=== PATIENT | male | born 1955 | race Caucasian/White ===

== ENCOUNTER → 2020-07-26 | Outpatient (CLI) | payer MEDICARE ==
[~2020-07-26] MED LIST: CATHETER FLUSH 10 ML SYR IV PRN; HOLD METFORMIN - RECEIVED CONTRAST 20 ML VIAL IV SCH; IOHEXOL 350 MG/ML 100 ML (OMNIPAQUE 350) VIAL IV ONE; NS 100 ML (IVPB) BAG IV ONE
[2020-07-26 15:03] LABS: ALANINE AMINOTRANSFERASE 20 U/L (0-55); ALKALINE PHOSPHATASE 73 U/L (40-136); BILIRUBIN,TOTAL 0.4 MG/DL (0.1-1.0); BUN/CREATININE RATIO 16; CALCIUM 9.5 MG/DL (8.5-10.1); CARBON DIOXIDE 28 MMOL/L (21-32); CHLORIDE 101 MMOL/L (98-107); CREATININE SERUM 0.88 MG/DL (0.60-1.30); GFR ESTIMATED > 60; GLUCOSE 105 MG/DL (70-105); POTASSIUM 4.8 MMOL/L (3.6-5.0); SODIUM 140 MMOL/L (135-145)
[2020-07-26 15:04] LABS: ALBUMIN 4.5 GM/DL (3.2-4.5); TOTAL PROTEIN 7.4 GM/DL (6.4-8.2)
--- NOTE | 2020-07-26 17:25 | Diagnostic Imaging Report ---
CLINICAL INDICATION: Patient with swelling of right side of face x1 week. EXAM: Axial CT scan of maxillofacial structures performed without and with 75 mL of Omnipaque 350 IV contrast. Coronal and sagittal reformatted images are created. Auto Exposure Controls were utilized during the CT exam to meet ALARA standards for radiation dose reduction. COMPARISON: None. FINDINGS: There is complete consolidation of the right maxillary sinus and obstruction of the right infundibular region. There is no enhancing mass seen. There are small amorphous areas of increased density involving the medial aspect of the right maxillary sinus. There is mild bony thickening/sclerosis of the right maxillary sinus wall likely related to chronic sinusitis changes. There is mild mucosal thickening involving the left maxillary sinus, ethmoid sinus, sphenoid sinus. There is no significant extracranial or maxillofacial soft tissue abnormality. There is no abscess or fat stranding seen. There is a small amount of soft tissue fat stranding and thickening involving the right upper lip/soft tissue adjacent to the maxilla. There is no evidence of abscess. There is poor dentition seen with dental erosions involving the maxillary right canine tooth. There is also some cortical disruption involving the alveolar region near the area. There are other areas of dental caries seen involving the maxillary and mandibular regions. There is rightward nasal septal deviation seen. The orbits and globes are intact. Visualized mastoid air cells are clear and unremarkable. Limited visualization of the intracranial structures are unremarkable. IMPRESSION: 1: There are multiple dental caries seen. There are dental erosions adjacent to the root of the maxillary right canine tooth with defect of the alveolar wall which is in the area of soft tissue inflammation involving the right upper lip/soft tissue adjacent to the right maxilla. There is no evidence of abscess. These findings are suspected to be odontogenic. 2: There is complete consolidation of the right maxillary sinus likely related to sinus disease. There is no enhancing mass seen. 3: There is mild paranasal sinusitis involving the ethmoid sinus, left maxillary sinus and sphenoid sinus. 4: There is chronic rightward nasal septal deviation. 5: Poor dentition is seen with multiple dental caries. Dictated by: Dictated on workstation # [id number]
== END ==
LOC: RAD FS 14:20
PROVIDERS: ATTEND Family Medicine
DX: R22.0 Localized swelling, mass and lump, head (principal); J34.89 Other specified disorders of nose and nasal sinuses; J34.2 Deviated nasal septum; K02.9 Dental caries, unspecified
CPT/HCPCS: 36415; 70488; 80053

== ENCOUNTER → 2021-03-01 | Outpatient (CLI) | payer MEDICARE ==
--- NOTE | 2021-03-01 15:02 | Diagnostic Imaging Report ---
EXAMINATION: Right shoulder MRI from 03/01/2021. TECHNIQUE: Multiplanar, multisequence pos-mtquuzqi-lfmeroor MRI of the right upper extremity was accomplished. INDICATION: Previous rotator cuff repair. Recent reinjury. Pain. FINDINGS: There are postoperative changes with susceptibility artifact about the humeral head. There are full-thickness tears of the supraspinatus and infraspinatus tendons with retraction measuring at least 4.3 cm. Findings cause secondary superior subluxation of the humeral head in relation to the glenoid. Within the caudal-most fibers of the subscapularis tendon, tendinosis is noted. More cranially, there is a partial-thickness intrasubstance tear which extends through the articular surface of the tendon in the cranial-most aspect of the tendon. No full-thickness extension is seen with no retraction of the tendon. The distal long head of the biceps tendon is intact and lies within the bicipital groove. More proximally, the biceps tendon is not seen, and there has been a likely biceps tenodesis; correlate with surgical procedure. There is diffuse heterogeneity throughout the superior labrum, and a tiny T2 hyperintensity is seen along the posterosuperior labrum suspicious for a paralabral cyst, best seen on the coronal T2 fat-saturated sequence image #8. Post-contrast MRI could confirm a labral tear if clinically indicated. There is narrowing, spurring, and edema throughout the acromioclavicular joint space with cystic changes cranial to the acromioclavicular joint consistent with a ganglion. There is a small amount of fluid in the subdeltoid-subacromial bursa with a small glenohumeral joint effusion. There is narrowing and spurring throughout the glenohumeral joint space. There is atrophy and fatty infiltration throughout the supraspinatus muscle and subscapularis muscle as well. Minimal fatty infiltration within the infraspinatus muscle is also noted. The visualized axilla is unremarkable. IMPRESSION: 1. Postoperative changes with full-thickness tears of the supraspinatus and infraspinatus tendons. 2. Partial tears throughout the subscapularis tendon. 3. Likely prior biceps tenodesis. 4. Suspected tear of the labrum; see above discussion and recommendations. Other findings as discussed above. Dictated by: Dictated on workstation # [id number]
== END ==
LOC: RAD 14:00
PROVIDERS: ATTEND Family Medicine
DX: S46.011A Strain of muscle(s) and tendon(s) of the rotator cuff of right shoulder, initial encounter (principal); X58.XXXA Exposure to other specified factors, initial encounter
CPT/HCPCS: 73221